=== PATIENT | female | born 1955 | race Caucasian/White ===

== ENCOUNTER → 2024-05-22 08:14 | Outpatient (BNVA) | payer OTHER, SELFPAY | PROVIDERS: Visit Provider Internal Medicine | DX: S63.501D Unspecified sprain of right wrist, subsequent encounter (principal); W51.XXXD Accidental striking against or bumped into by another person, subsequent encounter | CPT/HCPCS: 73110; 73130; 99203 ==

== ENCOUNTER → 2024-05-31 11:16 | Outpatient (BNVA) | payer OTHER, SELFPAY | PROVIDERS: Visit Provider Internal Medicine | DX: M79.641 Pain in right hand (principal) | CPT/HCPCS: 99213 ==

== ENCOUNTER → 2024-07-08 09:56 | Outpatient (BNVA) | payer OTHER, SELFPAY | PROVIDERS: Visit Provider Internal Medicine | DX: M25.531 Pain in right wrist (principal); Z02.79 Encounter for issue of other medical certificate | CPT/HCPCS: 99213 ==